=== PATIENT | female | born 1970 | race Caucasian/White ===

== ENCOUNTER 2020-12-31 20:00 | Outpatient (CLI) | payer OTHER, SELFPAY | END 2020-12-31 20:01 | disposition home or self-care (01) | LOC: SLEEP 01-01 11:12 | PROVIDERS: Family Provider Physician Assistant Medical; Visit Provider Physician Assistant Medical | DX: R06.83 Snoring (principal); R53.83 Other fatigue; G47.33 Obstructive sleep apnea (adult) (pediatric) | CPT/HCPCS: 95810 ==

== ENCOUNTER 2021-01-09 09:12 | Outpatient (CLI) | payer OTHER, SELFPAY ==
--- NOTE | 2021-01-09 09:18 | NM_ITS ---
WS: [id number] NUCLEAR MEDICINE BONE SCAN Radiopharmaceutical: 25.6 Tc-99m MDP mCi IV Injection site: Left antecubital Postinjection imaging delay: 1 hr CLINICAL INFORMATION: ABNORMAL CT OF HEAD COMPARISON: CT head August 28, 2020 FINDINGS: Bone lesions: There are no osseous lesions suspicious for metastatic disease. Normal calvarium. Soft tissue contours: Normal. Kidneys: Normal. Other findings: None. NM/NM bone scan whole body* [id number] IMPRESSION: No evidence of osseous metastatic disease.
== END 2021-01-09 09:13 | disposition home or self-care (01) ==
LOC: NM 09:14
PROVIDERS: PCP Physician Assistant Medical; Visit Provider Physician Assistant Medical
DX: R93.0 Abnormal findings on diagnostic imaging of skull and head, not elsewhere classified (principal)
CPT/HCPCS: 78306; A9561

== ENCOUNTER 2021-02-24 20:00 | Outpatient (CLI) | payer OTHER, SELFPAY | END 2021-02-24 20:01 | disposition home or self-care (01) | LOC: SLEEP 02-25 08:15 | PROVIDERS: PCP Physician Assistant Medical; Visit Provider Physician Assistant Medical | DX: G47.33 Obstructive sleep apnea (adult) (pediatric) (principal) | CPT/HCPCS: 95811 ==

== ENCOUNTER → 2021-05-23 11:39 | Outpatient (BNVA) | payer OTHER, SELFPAY | PROVIDERS: PCP Physician Assistant Medical; Visit Provider Nurse Practitioner Family | DX: Z20.822 Contact with and (suspected) exposure to COVID-19 (principal) | CPT/HCPCS: 87635 ==

== ENCOUNTER 2021-12-22 12:38 | Outpatient (CLI) | payer OTHER, SELFPAY ==
--- NOTE | 2021-12-22 13:02 | MM_ITS ---
WS: [id number] BILATERAL SCREENING 3D TOMOSYNTHESIS DIGITAL MAMMOGRAM WITH CAD HISTORY: SCREENING COMPARISON: 10/04/2018, 01/29/2012 Bilateral CC and MLO views submitted. Computer aided detection analyzed. Breast composition: The breasts are heterogeneously dense, which may obscure small masses. No suspici ous masses, microcalcifications or architectural distortion. Stable asymmetry in the medial LEFT [address] over several prior studies. No new or increasing nodule or mass. No distortion. MM/[place] [id number] IMPRESSION: BI-RADS: 2-Benign FOLLOW UP: 1 Year Follow-up
== END 2021-12-22 12:39 | disposition home or self-care (01) ==
LOC: RADSHAW 12:40
PROVIDERS: PCP Nurse Practitioner Family; Visit Provider Nurse Practitioner Family
DX: Z12.31 Encounter for screening mammogram for malignant neoplasm of breast (principal)
CPT/HCPCS: 77063; 77067

== ENCOUNTER 2022-06-03 07:42 | Outpatient (CLI) | payer OTHER, SELFPAY ==
[2022-06-03 08:14] VITALS: BMI 41.5
--- NOTE | 2022-06-03 08:14 | ECG_ITS ---
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 Interpretive Statements NAME OF STUDY: LEXISCAN SESTAMIBI STRESS TEST INDICATION: Chest Pain PROCEDURE: At the baseline, the blood pressure was 139/92 mmHg with a heart rate of 71 bpm and oxygen saturation 96%. The electrocardiogram showed sinus rhythm with artifact. Nonspecific ST changes. The Lexiscan was infused over a period of 20 seconds. A total of 0.4 milligrams of Lexiscan was infused. The stress phase was continued for a total of 5 minutes. Heart rate at the end of the stress phase was 89 bpm, oxygen saturation 97% with a blood pressure of 137/93 mmHg. The EKG at the peak infusion revealed sinus rhythm with no significant ST-T wave changes. The study was terminated due to protocol completion. Sestamibi was injected 20 seconds after the Lexiscan infusion. Blood pressure at the end of the recovery phase was 130/89 mmHg, oxygen saturation 97% with a heart rate of 82 beats per minute. CONCLUSION: 1. No significant EKG changes with the LexiScan infusion. 2. No LexiScan induced chest pain or cardiac arrhythmia. 3. Normal blood pressure and heart rate response. 4. Sestamibi/sestamibi perfusion scan pending; see separate report. Electronically Signed On 06-03-2022 13:14:58 CDT by Keira Peñaloza M.D. [id number]
--- NOTE | 2022-06-03 08:15 | NMCV_ITS ---
NM marilu perf SPECT r/s* [id number] Анна Harris Age: 52 Gender: F : 1970 Exam Date: 06/03/2022 09:41 Ordering Phys: Leon Bailey XX Technologist: CHAKA Dumont Exam Location: [facility] Indications: CHEST PAIN STRESS TEST Please see separate stress test report in [facility] for full findings IMAGE PROTOCOL Rest/Stress 1 Lexiscan Day Radiopharmaceutical Dose (mCi) Administration Site Administered by Rest: Tc-99m 10.6 IV CHAKA Robert Sestamibi Stress:Tc-99m 32.6 IV CHAKA Robert Sestamibi Rest: 03-Jun-2022 60 Discovery 630 Stress: 03-Jun-2022 30 Discovery 630 0.4mg Lexiscan. Images obtained in supine and prone position. SPECT RESULTS Technical Quality: Good Raw Data Analysis: Normal, Breast attenuation Image Corrections: No attenuation or motion correction applied Summed Stress Score: 1 Summed Rest Score: 2 Summed Difference Score: 1 PERFUSION FINDINGS Small size perfusion abnormality of mild severity of apical inferior and apical septal pozo on rest images with improved tracer uptake on stress images. This is suggestive of breast attenuation artifact. FUNCTIONAL RESULTS (calculated via Gated SPECT) Stress Image LV EF (%): 77 Stress EDV (mL):92 TID: 1.17 Stress ESV (mL):21 FUNCTIONAL FINDINGS: The left ventricle is normal in size. Transient Ischemia Dilatation of 1.17. There is normal left ventricular systolic function. The left ventricular ejection fraction is normal with a value of 77%. There is normal left ventricular wall thickening. IMPRESSIONS 1. Myocardial perfusion imaging is normal. 2. Overall left ventricular systolic function is normal without regional wall motion abnormalities, LVEF=77%. 3. No EKG changes with Lexiscan infusion. Refer to separate report for details. 4. No prior similar studies to compare. Keira Peñaloza MD (Electronically Signed) Final Date: 03 June 2022 13:21 S
[2022-06-03] MEDS: aminophylline 25 mg/mL SDV 10 mL IVP (10:25)
[2022-06-03] MEDS: ondansetron 2 mg/ML SDV 2 mL 4 MG IVP (10:30)
[2022-06-03 10:47] VITALS: BP 130/89; PULSE 85
== END 2022-06-03 07:43 | disposition home or self-care (01) ==
PROVIDERS: PCP Nurse Practitioner Family; Visit Provider Nurse Practitioner Family
DX: R07.9 Chest pain, unspecified (principal)
CPT/HCPCS: 78452; 93017; A9500; J0280; J2405

== ENCOUNTER 2023-04-06 06:45 | Outpatient (RCR) | payer OTHER, SELFPAY | END 2023-04-19 23:59 | disposition home or self-care (01) | LOC: WPT 06:45 | PROVIDERS: Visit Provider Nurse Practitioner Family | DX: M54.2 Cervicalgia (principal); M54.50 Low back pain, unspecified | CPT/HCPCS: 97161 ==

== ENCOUNTER 2023-04-20 06:00 | Outpatient (RCR) | payer OTHER, SELFPAY | END 2023-05-20 23:59 | disposition home or self-care (01) | LOC: WPT 06:00 | PROVIDERS: Visit Provider Nurse Practitioner Family | DX: M54.2 Cervicalgia (principal) | CPT/HCPCS: 97110; 97112; 97140; 97530 ==

== ENCOUNTER 2023-05-21 06:00 | Outpatient (RCR) | payer OTHER, SELFPAY | END 2023-06-19 23:59 | disposition home or self-care (01) | LOC: WPT 06:00 | PROVIDERS: Visit Provider Nurse Practitioner Family | DX: M54.2 Cervicalgia (principal) | CPT/HCPCS: 97110; 97112; 97140; 97530 ==

== ENCOUNTER → 2025-06-18 14:56 | Outpatient (BNVA) | payer MEDICAID, SELFPAY | PROVIDERS: Visit Provider Nurse Practitioner | DX: M19.012 Primary osteoarthritis, left shoulder (principal) | CPT/HCPCS: 73030 ==

== ENCOUNTER 2025-07-17 10:24 | Day surgery (SDC) | payer MEDICAID, SELFPAY ==
--- NOTE | 2025-07-09 08:36 | PC.NURSE ---
Patient took trizepitide on 07/06/25. Dr Meyers aware and talking to patient. Surgery scheduled for 07/10/25, this RN doing pre op call. Patient will reschedule.
[2025-07-17] VITALS (10 sets, daily range): BP systolic 128–155; BP diastolic 60–94; PULSE 70–82; RESP 17–21; TEMP 36.4–36.7; O2SAT 94–99; BMI 38.2
[2025-07-17] MEDS: acetaminophen 1,000 MG/100 ML PIGGYBACK 400 MG IV (11:19)
--- NOTE | 2025-07-17 12:17 | P.HPUD_ITS ---
Surgery/Procedure H&P Update DATE OF PROCEDURE: July 17, 2025 DATE H&P PERFORMED: 06/18/25 H&P UPDATE INFORMATION: I have reviewed H&P completed within last 30 days, I have examined patient prior to procedure, No changes to prior documentation, H&P is in [facility] EMR on date indicated and Risks and benefits of the procedure reviewed PRIMARY INDICATION FOR PROCEDURE: MRI of the patient's left shoulder without contrast was obtained at the [facility] mobile MRI on May 17, 2025. The images were reviewed and report was dictated by Dr. Fred Del Rosario DO. Impression: 1. High-grade partial, near full-thickness tear involving the anterior insertional fibers of the supraspinatus tendon. 2. Suspected longitudinal split tear involving the long head of the biceps tendon. 3. Mild glenohumeral joint degenerative changes. 4. Moderate acromioclavicular joint degenerative changes. 5. Trace subacromial subdeltoid bursitis. PLANNED PROCEDURE: Operation Date: 07/17/25 13:55 Proposed Procedures p LEFT Shoulder Open Rotator Cuff Repair(Left) - Tamia Velazquez MD s Acromioplasty(Left) - Tamia Velazquez MD s Distal Clavicle Resection(Left) - Tamia Velazquez MD Related Problem List Diagnoses 1. Traumatic incomplete tear of left rotator cuff, initial encounter: Qualifiers: Rotator cuff tear extent: incomplete Rotator cuff tear trauma status: traumatic Encounter type: initial encounter 2. Primary osteoarthritis of left shoulder: Qualifiers: Osteoarthritis type: primary 3. Bursitis of shoulder, left:
[2025-07-17] MEDS: midazolam 1 mg/mL INJ 2 mL 2 MG IVP (12:34)
--- NOTE | 2025-07-17 12:37 | ANES.PREANE2 ---
Pre-Anesthetic Assessment Height/Weight: Height 1.65 m Weight 104.326 kg Temp Pulse Resp BP Pulse Ox O2 Del Method 97.8 F 73 18 139/75 99 Room Air 07/17/25 11:14 07/17/25 11:14 07/17/25 11:14 07/17/25 11:14 07/17/25 11:14 07/17/25 11:39 Operation Date: 07/17/25 13:55 Proposed Procedures p LEFT Shoulder Open Rotator Cuff Repair(Left) - Tamia Velazquez MD s Acromioplasty(Left) - Tamia Velazquez MD s Distal Clavicle Resection(Left) - Tamia Velazquez MD Familial anesthetic complications: none Was Beta Aashish taken within 24 hours: N/A Was Clonidine taken within 24 hours: N/A Last intake: Intake Last Liquid Date 07/16/25 Last Liquid Time 22:00 Last Solid Date 07/16/25 Last Solid Time 19:30 Social No alcohol and No tobacco Exam alert, oriented x 3, clear to auscultation bilaterally and regular rate & rhythm Airway Mallampati: Class II Dentition: full CV/HEM Hypertension GI Gastroesophageal Reflux Disease Metabolic Hyperlipidemia and Morbid Obesity Anesthetic Plan ASA status: 3 Anesthesia: General and Regional (specify below) Risk of > 500 ml blood loss (7ml/kg in children): No Medications/Allergies Home Medications ?Medication ?Instructions ?Recorded ?Confirmed ?Last Taken ?Type fluoxetine 20 mg capsule 20 mg PO DAILY 08/30/20 07/16/25 07/16/25 History omeprazole 20 mg capsule,delayed 20 mg PO DAILY 08/30/20 07/16/25 07/16/25 History release cetirizine 10 mg capsule (Zyrtec) 10 mg PO DAILY 05/23/21 07/16/25 07/16/25 History cholecalciferol (vitamin D3) 1,250 50,000 unit PO .weekly 05/23/21 07/16/25 07/16/25 History mcg (50,000 unit) capsule hydrochlorothiazide 25 mg tablet 25 mg PO DAILY 05/23/21 07/16/25 07/16/25 History losartan 100 mg tablet 100 mg PO DAILY 05/23/21 07/16/25 07/16/25 History gabapentin 300 mg capsule 300 mg PO TID pain #90 caps 0207/16/25 07/16/25 Rx nitroglycerin 0.4 mg sublingual 0.4 mg sublingual Q5M PRN Chest 05/20/22 07/16/25 Unknown History tablet Pain hydrocodone 5 mg-acetaminophen 325 1 tab PO TID PRN Pain 06/18/25 07/16/25 07/15/25 History mg tablet tirzepatide (weight loss) 7.5 7.5 mg SUBCUT DIRECTED 06/18/25 07/16/25 07/06/25 History mg/0.5 mL subcutaneous pen injector (Zepbound) aspirin 81 mg tablet,delayed 81 mg PO DAILY 07/09/25 07/16/25 1 Week Ago History release ~07/09/25 atorvastatin 20 mg tablet 20 mg PO DAILY 07/09/25 07/16/25 07/15/25 History budesonide-formoterol HFA 160 2 puff inhalation BID 07/09/25 07/16/25 2 Weeks Ago History mcg-4.5 mcg/actuation aerosol ~07/02/25 inhaler (Symbicort) bupropion HCl 150 mg tablet,12 hr 150 mg PO DAILY 07/09/25 07/16/25 07/16/25 History sustained-release duloxetine 60 mg capsule,delayed 60 mg PO DAILY 07/09/25 07/16/25 07/16/25 History release meloxicam 15 mg tablet 15 mg PO DAILY 07/09/25 07/16/25 07/15/25 History varenicline tartrate 1 mg tablet 1 mg PO PRN 07/09/25 07/16/25 1 Week Ago History ~07/09/25 Allergies Allergy/AdvReac Type Severity Reaction Status Date / Time Penicillins Allergy ALGY-Anaphy Verified 07/16/25 09:19 laxis lisinopril AdvReac Severe ADR-Muscle Verified 07/16/25 09:19 Pain Current Medications Generic Name Dose Route Start Last Admin Trade Name Freq PRN Reason Stop Dose Admin Sodium Chloride 1,000 mls @ 30 mls/hr 07/17/25 10:45 07/17/25 11:18 Sodium Chloride 0.9% IV 07/18/25 10:44 30 mls/hr .Q24H GEOVANNA Administration PFSH Anesthesia Medical History (Updated 06/25/25 @ 20:10 by ELLA Acosta) Bursitis of shoulder, left Traumatic incomplete tear of left rotator cuff, initial encounter Primary osteoarthritis of left shoulder Anxiety Hypertension GERD (gastroesophageal reflux disease) Surgical History H/O colonoscopy 2016 History of nasal surgery History of tonsillectomy Hx of tubal ligation H/O hysterectomy for benign disease partial H/O wrist surgery ganglion cyst H/O esophagogastroduodenoscopy 6-7 yrs ago Family History Grandmother Cancer Other CAD (coronary artery disease) Diabetes Hypertension Stroke Denies family history of Anesthesia complication Bleeding disorder Social History Smoking and tobacco/nicotine status: never used tobacco/nicotine Alcohol intake: current Alcohol intake frequency: holidays/special occasions only Substance/Drug Use: never Marital status: Single Data Anesthesia Cardiac Studies: Sestamibi Stress Test (Cardiology) 06/03/22 Anesthesia Procedures Nerve Block Nerve Block 1: Main Anesthesia: general anesthesia Time Out Performed: Yes Consent: requested by attending/covering physician, from patient, from other, risks and benefits reviewed and patient agrees to proceed Nerve block location: interscalene (L) Anesthesia monitors applied: pulse oximetry, EKG, BP cuff and oxygen Nerve block position: semi sitting Anesthetic Used: ropivicaine 0.5% (20 ml) and with decadron (4 mg) Ultrasound used to: recognize landmarks, visualize and ID brachial plexus, in supraclavicular region and visualize and ID interscalene groove Nerve Stimulator Used?: No Interscalene/Femoral BLK: 2 stimuplex 22 g needle used for position and inplane approach, visualize local anesthetic spread and no vascular puncture identified Injection: neg aspiration of heme Patient Tolerated Procedure: well Complications: none
--- NOTE | 2025-07-17 12:48 | PC.NURSE ---
1222 - linda , advanced clinical specialist student Ovidio performed left shoulder block using ultrasound guidance 20 ml ropivicaine injected without incident, pt tolerated well
--- NOTE | 2025-07-17 15:07 | P.OP_ITS ---
Operative Report Date of procedure: July 17, 2025 Pre-op diagnosis: Left shoulder high-grade near full-thickness tear involving the anterior supraspinatus, acromioclavicular joint osteoarthritis, impingement, and bursitis Post-op diagnosis: Left shoulder full-thickness anterior supraspinatus tear, acromioclavicular osteoarthritis, impingement, and bursitis Post-op findings: Thickening of the bursa with complete tear of the supraspinatus tendon. There was also significant expansion of the distal clavicle with osteoarthritic change. Procedure done: Left shoulder rotator cuff tear with acromioplasty utilizing 1 anchor with 2 sutures, distal clavicle resection, and partial bursectomy Implants: SteelCloudteon Enterline 5.5 mm suture anchor with 2 #2 Force Fiber sutures Specimens removed/disposition: None Pathology: None Surgeon: Tamia Velazquez MD Front End Web Designer: Bella Vee, nurse practitioner, whose services were required for positioning, exposure, retraction, repair of the rotator cuff, and wound closure. Anesthesia: General (Intubated, ASA 3, with interscalene block) Estimated blood loss (mL): 10 IV fluids (mL): 600 Urine output (mL): 0 (No Bacon) Complications: None Findings: As above Condition: stable Disposition: PACU (Then return to same-day surgery for discharge to home) Brief History: This 55-year-old woman presented to the orthopedic clinic after having an MRI ordered by her PCP. Patient presented for evaluation of left shoulder pain and to discuss MRI findings. Patient notes that she fell approximately 2 months prior to the visit, and she was initially treated nonoperatively. MRI demonstrated a high-grade partial near full-thickness tear involving the anterior supraspinatus with mild glenohumeral osteoarthritis and moderate subacromial joint degenerative change. There is also subdeltoid and subacromial bursitis. After discussion in the office, the patient wished to proceed with operative intervention. Risks and complications were discussed with her. Consents were signed and questions were answered. Procedure: The patient was brought to the operating theater and underwent general intubated anesthesia, ASA 3, with preoperative supplemental interscalene block, which was well-tolerated. The patient was placed in a beachchair position and subsequently the left upper extremity was prepped and draped in the usual fashion utilizing DuraPrep. The arm was draped free. A surgical pause was performed prior to commencement of the surgical procedure. At the time of the surgical pause, we confirmed the site and side of surgery as well as administration of appropriate preoperative antibiotics, clindamycin 600 mg. MRI was also reviewed at that time. Following the surgical pause, an incision was made at approximately the level of the acromioclavicular joint extending across the anterolateral corner of the acromion and distally as necessary. Care was taken to avoid injury to the axillary nerve by limiting the distal extent of the incision. Dissection continued through skin and soft tissues using a scalpel. Hemostasis was obtained using electrocautery. Soft tissues were elevated off the acromion and the acromioclavicular joint. The acromioclavicular joint was exposed as well as the anterior lateral border of the acromion. An acromioplasty was then accomplished using a combination of a saw and a power rasp. With this, we were able to remove compression caused by the acromion. Impingement was significantly improved following acromioplasty. Significant bursectomy was accomplished as this was quite thickened and erythematous. Following resection of the bursa, the rotator cuff was visually inspected as well as palpated. There was significant thinning of the supraspinatus at its attachment to the humerus. There was also small osteophyte here. Upon further evaluation and palpation, there was actually a full-thickness tear and the fibers just lifted up from the insertion onto the humerus. Additionally, there was a small osteophyte in this area which was removed. The remainder of the rotator cuff was evaluated and there was no other evidence of rotator cuff tear. The tear was freshened to allow rotator cuff reattachment. A single Biosteon Enterline 5.5 mm suture anchor with 2 #2 Force Fiber's was placed into position. The rotator cuff tear was sewn back to the humerus. This was also supplemented with 0 Vicryl. Once this repair had been made, attention was directed to the distal clavicle. A saw was then used to resect the distal clavicle without difficulty. The undersurface of the clavicle was palpated and was slightly further debrided. A power rasp was used to further smooth the area. When this was felt to be adequately resected, the wound was irrigated. Following excision of the distal clavicle and repair as noted above, the shoulder was placed through range of motion. There was no further evidence of significant impingement or other evidence of rotator cuff tear. The wound was copiously irrigated and attention was directed to closure. Closure was accomplished with 0 Vicryl in the capsular tissues overlying the acromioclavicular joint area as well as over the acromion and down into the deltoid muscle. 2-0 Monocryl was used to close the subcutaneous tissues followed by 3-0 Monocryl subcuticular closure. This was followed by Dermabond, Steri- Strips, and OpSite. An ABD was placed in the axilla. The patient was placed in a slingshot style sling and was returned to the recovery room in satisfactory condition. The patient will be discharged to home to follow-up in office as scheduled. There were no complications and no specimens. Related Problem List Diagnoses 1. Traumatic complete tear of left rotator cuff, initial encounter: 2. Impingement of left shoulder: 3. Primary osteoarthritis of left shoulder: 4. Bursitis of shoulder, left:
== END 2025-07-17 16:46 | disposition home or self-care (01) ==
PROVIDERS: PCP Nurse Practitioner Family; Visit Provider Specialist
PROC: (CPT 23412; principal; 2025-07-17 13:55)
PROC: (CPT 23130; 2025-07-17 13:55)
PROC: (CPT 23120; 2025-07-17 13:55)
DX: M75.42 Impingement syndrome of left shoulder (principal); M75.102 Unspecified rotator cuff tear or rupture of left shoulder, not specified as traumatic; M19.012 Primary osteoarthritis, left shoulder; M75.52 Bursitis of left shoulder; I10 Essential (primary) hypertension; K21.9 Gastro-esophageal reflux disease without esophagitis; E78.5 Hyperlipidemia, unspecified; E66.01 Morbid (severe) obesity due to excess calories; Z68.38 Body mass index [BMI] 38.0-38.9, adult; Z79.891 Long term (current) use of opiate analgesic; Z79.82 Long term (current) use of aspirin; F41.9 Anxiety disorder, unspecified
CPT/HCPCS: 23412; 23130; 23120; C1713; J0131; J1100; J2250; J2405; J2704; J2795; J3010; J3490; J7030; J9999

== ENCOUNTER → 2025-08-20 09:26 | Outpatient (BNVA) | payer MEDICAID, SELFPAY | PROVIDERS: PCP Nurse Practitioner Family; Visit Provider Nurse Practitioner | DX: M19.012 Primary osteoarthritis, left shoulder (principal); Z98.890 Other specified postprocedural states; W19.XXXA Unspecified fall, initial encounter | CPT/HCPCS: 73030 ==